=== PATIENT | female | born 1995 | race Caucasian/White ===

== ENCOUNTER 2017-05-23 06:40 | Day surgery (SDC) | END 2017-05-23 10:39 | disposition home or self-care (01) ==

== ENCOUNTER 2018-09-20 08:51 | Emergency (ER) | payer SELFPAY ==
[~2018-09-20] VITALS: Ht 154.9 cm; Wt 80.0 kg
[2018-09-20 08:54] VITALS: Ht 154.9 cm; Wt 80.0 kg
[2018-09-20] MEDS ORDERED: SOD CHLORIDE 0.9% 1,000 ML IV STA (09:31)
[2018-09-20] MEDS ORDERED: morphine 4 MG/ML VIAL IV STA (09:31)
[2018-09-20] MEDS ORDERED: ONDANSETRON 4 MG INJ IV STA (09:31)
[2018-09-20] MEDS ORDERED: AMPICILLIN/SULB 3 GM/NS (PMX) 100 ML IVPB ONE ×2 (10:00→10:09)
--- NOTE | 2018-09-20 10:01 | ERD ---
ER Documentation Chief Complaint Chief Complaint right side swelling adt tooth ache today, no airway compromise HPI 22-year-old female presents complaint of right side swelling of her face as well as toothache in the upper right row starting today. Patient states that she has not seen her dentist. Patient states the pain is currently 10 out of 10. Pain is throbbing. Does not take any treatments. Patient denies any fevers, chills, headaches, vision problems. ROS All systems reviewed and are negative except as per history of present illness. Medications Home Meds Active Scripts Amoxicillin/Potassium Clav (Amox-Clav 875-125 mg Tablet) 875-125 mg Tab, 1 TAB PO BID for 10 Days, #20 TAB Prov:PRANAV THOMPSON 09/20/18 Ibuprofen* (Motrin*) 600 Mg Tab, 600 MG PO Q6, #30 TAB Prov:PRANAV THOMPSON 09/20/18 Hydrocodone/Acetaminophen ([place] 5-325 Tablet) 1 Each Tablet, 1-2 TAB PO Q6H PRN for PAIN, #15 TAB Prov:PRANAV THOMPSON 09/20/18 Allergies Allergies: Coded Allergies: No Known Allergy (Unverified , 09/20/18) PMhx/Soc History of Surgery: No Anesthesia Reaction: No Hx Neurological Disorder: No Hx Respiratory Disorders: No Hx Cardiac Disorders: No Hx Psychiatric Problems: No Hx Miscellaneous Medical Probl: No Hx Alcohol Use: No Hx Substance Use: No Hx Tobacco Use: No Smoking Status: Never smoker FmHx Family History: No diabetes, No coronary disease, No other Physical Exam Vitals Vital Signs Date Temp Pulse Resp B/P (MAP) Pulse Ox O2 O2 Flow FiO2 Time Delivery Rate 09/20/18 89 18 130/99 99 Room Air 12:14 (109) 09/20/18 99.1 99 18 139/96 99 08:54 (110) Physical Exam Const: No acute distress Head: Atraumatic. Edema without erythema or tenderness to palpation noted in the right maxillary area. Teeth are intact. No periapical abscess noted. Eyes: Normal Conjunctiva ENT: Normal External Ears, Nose and Mouth. Neck: Full range of motion. No meningismus. Resp: Clear to auscultation bilaterally Cardio: Regular rate and rhythm, no murmurs Abd: Soft, non tender, non distended. Normal bowel sounds Skin: No petechiae or rashes Back: No midline or flank tenderness Ext: No cyanosis, or edema Neur: Awake and alert Psych: Normal Mood and Affect Result Diagram: 09/20/1850 09/20/18 0950 Results 24 hrs Laboratory Tests Test 09/20/18 09:50 09/20/18 09:54 White Blood Count 14.0 10^3/ul Red Blood Count 5.04 10^6/ul Hemoglobin 13.5 g/dl Hematocrit 41.5 % Mean Corpuscular Volume 82.3 fl Mean Corpuscular Hemoglobin 26.8 pg Mean Corpuscular Hemoglobin Concent 32.5 g/dl Red Cell Distribution Width 13.7 % Platelet Count 360 10^3/UL Mean Platelet Volume 9.1 fl Immature Granulocytes % 0.300 % Neutrophils % 72.1 % Lymphocytes % 18.5 % Monocytes % 7.5 % Eosinophils % 0.7 % Basophils % 0.9 % Nucleated Red Blood Cells % 0.0 /100WBC Immature Granulocytes # 0.040 10^3/ul Neutrophils # 10.1 10^3/ul Lymphocytes # 2.6 10^3/ul Monocytes # 1.1 10^3/ul Eosinophils # 0.1 10^3/ul Basophils # 0.1 10^3/ul Nucleated Red Blood Cells # 0.0 10^3/ul Sodium Level 142 mmol/L Potassium Level 4.2 mmol/L Chloride Level 105 mmol/L Carbon Dioxide Level 24 mmol/L Anion Gap 13 Blood Urea Nitrogen 12 mg/dl Creatinine 0.60 mg/dl Est Glomerular Filtrat Rate mL/min > 60 mL/min Glucose Level 95 mg/dl Calcium Level 9.2 mg/dl Total Bilirubin 0.7 mg/dl Direct Bilirubin 0.00 mg/dl Indirect Bilirubin 0.7 mg/dl Aspartate Amino Transf (AST/SGOT) 22 IU/L Alanine Aminotransferase (ALT/SGPT) 13 IU/L Alkaline Phosphatase 87 IU/L Total Protein 8.1 g/dl Albumin 4.3 g/dl Globulin 3.80 g/dl Albumin/Globulin Ratio 1.13 POC Beta HCG, Qualitative NEGATIVE Current Medications Medications Dose Sig/Rukhsana Start Time Status Last (Trade) Ordered Route PRN Stop Time Admin Dose Reason Admin Sodium 1,000 ml @ Q1H STAT 09/20/18 DC 09/20/18 Chloride 1,000 mls/hr IV 09:31 10:01 09/20/18 10:30 Morphine 4 mg ONCE STAT 09/20/18 DC 09/20/18 Sulfate IV 09:31 10:01 (morphine) 09/20/18 09:34 Ondansetron 4 mg ONCE STAT 09/20/18 DC 09/20/18 HCl (Zofran IV 09:31 10:01 Inj) 09/20/18 09:34 Ampicillin 100 ml @ ONCE ONCE 09/20/18 Cancel Sodium/ 100 mls/hr IVPB 10:00 Sulbactam 09/20/18 10:59 Sodium Ampicillin 100 ml @ ONCE ONCE 09/20/18 DC 09/20/18 Sodium/ 100 mls/hr IVPB 10:09 10:27 Sulbactam 09/20/18 10:59 Sodium IV Flush 10 ml STK-MED 09/20/18 DC (NS 10 ml) ONCE .ROUTE 10:23 09/20/18 10:24 Sodium 100 ml @ ud STK-MED 09/20/18 DC Chloride ONCE .ROUTE 10:23 09/20/18 10:24 Iohexol 150 ml STK-MED 09/20/18 DC (Omnipaque ONCE .ROUTE 10:23 300mg/ ml) 09/20/18 10:24 Procedures/MDM DIAGNOSTIC IMAGING REPORT Patient: YULISSA JOSEPH : 1995 Age: 22 Sex: F MR #: [id number] DOS: 09/20/18 0931 Ordering MD: PRANAV THOMPSNO Location: [facility] Room/Bed: PROCEDURE: CT NECK WITH CONTRAST CLINICAL INDICATION: Right facial pain/swelling and tooth pain. TECHNIQUE: Utilizing a [employer] helical CT scanner, multiple contiguous transaxial images were obtained from the base of skull to mid thyroid gland during intravenous administration of 90 cc of Isovue 300. In addition to soft tissue and bone windows of transaxial images, multiple sagittal and coronal reformatted images were generated for the interpretation. DIACOM images are available. Radiation dose: CTDIvol = 54 mGy; total DLP = 1123 mGy-cm. One or more of the following dose reduction techniques were used: - Automated exposure control. - Adjustment of the mA and/or kV according to patient size. - Use of iterative reconstruction technique. COMPARISON: None. FINDINGS: A cellulitis of the right upper lip and medial right cheek consisting of mild to moderate soft tissue edema and swelling, approximately 10 mm TR x 2-3 mm AP gingival abscess at the level of the upper right incisor teeth and approximately 9-10 mm apical abscess of the upper right medial and lateral incisor teeth are observed. The inferior tongue is not optimally visualized due to metallic artifacts of the dental origin. The nasopharynx, floor of the mouth, base of tongue, oropharynx, hypopharynx, bilateral parotid glands, bilateral submandibular glands, and visualize thyroid gland are normal. There is no malignant-appearing cervical lymphadenopathy per the size criteria. There is no destructive bone lesion. Mild mucosal thickening with a few retention cysts/inflammatory polyps measuring up to approximately 11 mm along t he inferior right maxillary sinus and mild mucosal thickening along the inferior left maxillary sinus are appreciated. Bilateral mastoid air cells and remaining paranasal sinuses are normally aerated. IMPRESSION: 1. Cellulitis of the right upper lip and medial right cheek consisting of mild to moderate soft tissue edema and swelling, approximately 10 mm TR x 2-3 mm AP gingival abscess at the level of the upper right incisor teeth and approximately 9-10 mm apical abscess of the upper right medial and lateral incisor teeth. 2. No neck mass or malignant appearing cervical lymphadenopathy per the size criteria. 3. A call report of the findings was made to Pranav Thompson MD on 09/20/2018 at 11:20 AM. RPTAT: EE Physician Yaya Date Time Electronically viewed and signed by Physician Yaya on 09/20/2018 11:26 PH/ CC: PRANAV THOMPSON [id number] MDM: Given physical exam and history findings CT of the face was ordered with contrast. The CT was approved by my supervising physician Dr. Rodriguez. CT showed periapical as well as gingival abscess and facial cellulitis. I discussed the case with Dr. Rodriguez he stated to give patient's IV Unasyn and patient could be discharged with Augmentin with orders to follow-up with her dentist. Patient was advised to follow-up with dentist within 24 hours and patient agreed to do so. In addition I printed out information for [facility] the patient's packet and stated that she is unable to get her dentist she can call them. Patient was given strict discharge instructions to return to ER if there is wo rsening symptoms. At time of discharge patient's pain was under control and she felt comfortable going home. At this time, patient is stable for discharge and outpatient management. I have instructed the patient to follow-up with his/her primary care physician in 1-2 days. I have discussed with the patient the possibility of needing to see a specialist for further workup and imaging studies if symptoms persist. I have instructed the patient to promptly return to the ER for any new or worsening symptoms including but not limited to increased pain, fever, nausea, vomiting, weakness or LOC. The patient and/or family expressed understanding of and agreement with this plan. All questions were answered. Home care instructions were provided. DISCLAIMER: Inadvertent spelling and grammatical errors are likely due to EHR/dictation software use and do not reflect on the overall quality of patient care. Also, please note that the electronic time recorded on this note does not necessarily reflect the actual time of the patient encounter. Departure Diagnosis: Primary Impression: Apical abscess Additional Impressions: Gingival abscess Cellulitis, face Condition: Stable PRANAV THOMPSON Sep 20, 2018 10:01
[2018-09-20] MEDS ORDERED: SOD CHLORIDE 0.9% 100 ML ONE (10:23)
[2018-09-20] MEDS ORDERED: IOHEXOL 300MG/ML 150 ML BTL ONE (10:23)
[2018-09-20] MEDS ORDERED: IBUP-1542 PO (12:00)
[2018-09-20] MEDS ORDERED: AMOX1TAB10 PO (12:00)
[2018-09-20] MEDS ORDERED: HYDR-4011 PO (12:00)
[2018-09-20 12:14] VITALS: BP 130/99; PULSE 89; RESP 18
== END 2018-09-20 12:15 | disposition home or self-care (01) ==
LOC: FTE 08:51
DX: K04.7 Periapical abscess without sinus (principal); L03.211 Cellulitis of face
CPT/HCPCS: 36415; 70486; 80053; 81025; 85025; 96365; 96375; 99285; J0295; J2270; J2405; J7030; Q9967